=== PATIENT | male | born 1985 | race Two or more races ===

== ENCOUNTER 2022-01-26 14:34 | Inpatient (IN) | payer OTHER ==
[2022-01-26] MEDS ORDERED: MAG HYDROX/AL HYDROX/SIMETH 30 ML UNIT-DOSE CUP PO PRN (19:24)
[2022-01-26] MEDS ORDERED: ACETAMINOPHEN 325 MG TABLET (FP) PO PRN ×2 (19:24)
[2022-01-26] MEDS ORDERED: IBUPROFEN 400 MG TABLET (FP) PO PRN (19:24)
[2022-01-26] MEDS ORDERED: MAGNESIUM HYDROX 2400MG/30ML ORAL SUSPENSION 30 ML CUP PO PRN (19:24)
[2022-01-26] MEDS ORDERED: LOPERAMIDE HCL 2 MG CAPSULE PO PRN (19:24)
[2022-01-26] MEDS ORDERED: MENTHOL/PHENOL 1 EACH UD MM PRN (19:24)
[2022-01-26] MEDS ORDERED: MAGNESIUM CITRATE 300 ML BOTTLE PO PRN (19:24)
[2022-01-26] MEDS ORDERED: ONDANSETRON *ODT* 4 MG TABLET SL PRN (19:24)
[2022-01-26] MEDS ORDERED: BISMUTH SUBSALICYLATE 524 MG/30 ML PO PRN (19:24)
[2022-01-27 00:44] VITALS: BMI 20.3
[2022-01-27] MEDS: THIAMINE HCL 100 MG TABLET (FP) PO SCH ×2 (02:22→22:19)
[2022-01-27] MEDS ORDERED: methaDONE HCL 10 MG TABLET (FOR DETOX USE ONLY) PO ONE (09:39)
[2022-01-27] MEDS ORDERED: cloNIDine HCL 0.1 MG TABLET PO PRN (09:39)
[2022-01-27] MEDS: PRENATAL VITAMINS W/ FOLIC ACID TABLET (FP) PO SCH (10:15)
[2022-01-27] MEDS: diazePAM 5 MG TABLET PO PRN ×3 (10:15→22:19)
[2022-01-27 10:47] LABS: HEMATOCRIT 39.4 % (35.4-49); HEMOGLOBIN 13.1 GM/dL (11.7-16.9); MCH 28.1 pg (25.7-33.7); MCHC 33.2 g/dl (32.0-35.9); MEAN CELL VOLUME 84.6 fl (80-96); MEAN PLT VOLUME 8.8 fl (7.5-11.1); PLATELET COUNT 280 10^3/uL (134-434); RBC 4.65 M/mm3 (4.00-5.60); RDW 14.7 % (11.9-15.9); WHITE BLOOD COUNT 4.1 K/mm3 (4.0-10.0)
[2022-01-27 10:57] LABS: CALCIUM 8.9 mg/dL (8.5-10.1)
[2022-01-27 10:58] LABS: ALBUMIN 3.6 g/dl (3.4-5.0); BLOOD UREA NITROGEN 20.4 mg/dL (7-18)
[2022-01-27 11:01] LABS: CREATININE 1.2 mg/dL (0.55-1.3)
[2022-01-27 11:02] LABS: BILIRUBIN,TOTAL 0.4 mg/dL (0.2-1); TOT PROT 6.9 g/dl (6.4-8.2)
[2022-01-27] MEDS: MELATONIN 5 MG TABLETS PO PRN (22:19)
[2022-01-28] MEDS ORDERED: methaDONE HCL 10 MG TABLET (FOR DETOX USE ONLY) ONE (08:36)
[2022-01-28 10:08] LABS: SARS-CoV-2 NAA Not Detected (Not Detected)
[2022-01-28] MEDS: PRENATAL VITAMINS W/ FOLIC ACID TABLET (FP) PO SCH (10:48)
[2022-01-28] MEDS: diazePAM 5 MG TABLET PO PRN ×2 (10:53→19:57)
[2022-01-28] MEDS: NICOTINE POLACRILEX 2 MG GUM BUC PRN ×2 (20:58→22:58)
[2022-01-28] MEDS: MELATONIN 5 MG TABLETS PO PRN (22:40)
[2022-01-28] MEDS: THIAMINE HCL 100 MG TABLET (FP) PO SCH (22:40)
[2022-01-29] MEDS: diazePAM 5 MG TABLET PO PRN ×5 (00:51→22:11)
[2022-01-29] MEDS: NICOTINE POLACRILEX 2 MG GUM BUC PRN (05:42)
[2022-01-29] MEDS ORDERED: NICOTINE 21 MG/24 HOURS TOPICAL PATCH TD SCH (10:00)
[2022-01-29] MEDS ORDERED: methaDONE HCL 10 MG TABLET (FOR DETOX USE ONLY) PO ONE (10:00)
[2022-01-29] MEDS: PRENATAL VITAMINS W/ FOLIC ACID TABLET (FP) PO SCH (10:35)
[2022-01-29] MEDS: hydrOXYzine PAMOATE 25 MG CAPSULE (FP) PO PRN ×2 (10:35→22:11)
[2022-01-29] MEDS ORDERED: NICOTINE 10 MG CARTRIDGE (INHALER) IH SCH (10:45)
[2022-01-29] MEDS: NICOTINE 10 MG CARTRIDGE (INHALER) IH SCH (15:03)
[2022-01-29] MEDS: METHOCARBAMOL 500 MG TABLET PO PRN (22:10)
[2022-01-29] MEDS: THIAMINE HCL 100 MG TABLET (FP) PO SCH (22:11)
[2022-01-30] MEDS: diazePAM 5 MG TABLET PO PRN (07:31)
[2022-01-30] MEDS ORDERED: methaDONE HCL 10 MG TABLET (FOR DETOX USE ONLY) ONE (09:17)
[2022-01-30] MEDS: PRENATAL VITAMINS W/ FOLIC ACID TABLET (FP) PO SCH (09:56)
[2022-01-30] MEDS: METHOCARBAMOL 500 MG TABLET PO PRN ×2 (09:56→18:58)
[2022-01-30] MEDS: NICOTINE 10 MG CARTRIDGE (INHALER) IH SCH (09:58)
[2022-01-30] MEDS: hydrOXYzine PAMOATE 25 MG CAPSULE (FP) PO PRN ×3 (12:44→22:23)
[2022-01-30] MEDS: cloNIDine HCL 0.1 MG TABLET PO PRN ×3 (14:33→22:24)
[2022-01-30] MEDS: NICOTINE 10 MG CARTRIDGE (INHALER) IH PRN (16:35)
[2022-01-30] MEDS: THIAMINE HCL 100 MG TABLET (FP) PO SCH (22:23)
[2022-01-31] MEDS ORDERED: methaDONE HCL 10 MG TABLET (FOR DETOX USE ONLY) PO ONE (10:00)
[2022-01-31] MEDS: hydrOXYzine PAMOATE 25 MG CAPSULE (FP) PO PRN ×2 (10:11→17:34)
[2022-01-31] MEDS: PRENATAL VITAMINS W/ FOLIC ACID TABLET (FP) PO SCH (10:11)
[2022-01-31] MEDS: METHOCARBAMOL 500 MG TABLET PO PRN ×2 (10:11→17:34)
[2022-01-31] MEDS: cloNIDine HCL 0.1 MG TABLET PO PRN ×2 (10:38→17:34)
[2022-01-31] MEDS: NICOTINE 10 MG CARTRIDGE (INHALER) IH PRN ×2 (10:39→14:44)
[2022-01-31 21:17] VITALS: BP 105/70; PULSE 87; TEMP 98.2
== END 2022-01-31 23:56 | disposition home or self-care (01) | DRG 773 ==
LOC: YASAS 14:34 → Y3N 01-27 00:58
PROVIDERS: ADMIT Allergy & Immunology; ATTEND Allergy & Immunology
PROC: HZ2ZZZZ Detoxification Services for Substance Abuse Treatment (ICD-10-PCS; principal; 2022-01-27)
DX: F11.23 Opioid dependence with withdrawal (principal); F14.20 Cocaine dependence, uncomplicated; F17.210 Nicotine dependence, cigarettes, uncomplicated
CPT/HCPCS: 36415; 80053; 85027; 86780; C9803; J0735; U0003; U0005